=== PATIENT | male | born 1930 | race Caucasian/White ===

== ENCOUNTER 2020-09-03 08:17 | Outpatient (CLI) | payer OTHER ==
[~2020-09-03 08:17] MED LIST: AMLODIPINE BES2.5 MG PO; ATROVASTATIN PO; CEFUROXIME500 MG PO; JANUVIA; LOSARTAN POTAS100 MG PO; PROSCAR5 MG PO; RAPAFLO8 MG PO; SYNTHROID50 MCG PO; TRAVATAN Z5 ML OP
== END 2020-09-03 08:21 | disposition home or self-care (01) ==
LOC: NUCLEAR 08:17
PROVIDERS: ATTEND Internal Medicine
DX: R55 Syncope and collapse (principal)

== ENCOUNTER 2020-09-10 07:03 | Day surgery (SDC) | payer OTHER | END 2020-09-10 17:00 | disposition home or self-care (01) | LOC: CIR.AMB 07:03 | PROVIDERS: ATTEND Urology | DX: N40.1 Benign prostatic hyperplasia with lower urinary tract symptoms (principal); R33.8 Other retention of urine; Z20.822 Contact with and (suspected) exposure to COVID-19 ==